=== PATIENT | female | born 1985 | race Caucasian/White ===

== ENCOUNTER 2017-03-22 16:54 | Emergency (ER) | payer MEDICAID, OTHER ==
[~2017-03-22] VITALS: Ht 154.9 cm; Wt 45.4 kg
[2017-03-22 17:05] VITALS: BP 136/89
--- NOTE | 2017-03-22 17:13 | NUR ---
31/F BIB C/O NAUSEA LOWER ABDOMINAL PAIN & HEADACHE, X1 WK . DENIES V/D; SKIN IS PINK/WARM/DRY; AAOX4 WITH EVEN AND STEADY GAIT; LUNGS CLEAR BL; HR EVEN AND REGULAR; PT DENIES ANY FEVER, CP, SOB, OR COUGH AT THIS TIME; PATIENT STATES PAIN OF 7/10 AT THIS TIME; PATIENT POSITIONED FOR COMFORT; HOB ELEVATED; BEDRAILS UP X2; BED DOWN. ER MD MADE AWARE OF PT STATUS.
--- NOTE | 2017-03-22 17:15 | NUR ---
Patient to bed 6.
[2017-03-22] MEDS ORDERED: DOXYCYCLINE 100 MG CAP PO SCH (18:25)
[2017-03-22] MEDS ORDERED: cefTRIAXone 1,000 MG in LIDOCAINE 1% ED 2.1 ML IM ONE (18:25)
[2017-03-22] MEDS ORDERED: KETOROLAC 60 MG/2 ML VIAL IM ONE (18:25)
--- NOTE | 2017-03-22 19:17 | NUR ---
Patient discharged with v/s stable. Written and verbal after care instructions given and explained. Patient alert, oriented and verbalized understanding of instructions. Ambulatory with steady gait. All questions addressed prior to discharge. ID band removed. Patient advised to follow up with PMD. Rx of IBUPROFEN & DOXYCYCLIN given. Patient educated on indication of medication including possible reaction and side effects. Opportunity to ask questions provided and answered.
[2017-03-22 19:19] VITALS: BP 124/79
[2017-03-22 19:34] LABS: APPEARANCE,URINE CLEAR (CLEAR); BILIRUBIN,URINE NEGATIVE (NEGATIVE); BLOOD, URINE NEGATIVE (NEGATIVE); COLOR,URINE YELLOW (YELLOW); LEUKOCYTE ESTERASE ,URINE NEGATIVE (NEGATIVE); NITRITE, URINE NEGATIVE (NEGATIVE); UGLUCOSE NEGATIVE (NEGATIVE)
== END 2017-03-22 19:17 | disposition home or self-care (01) ==
LOC: MED 16:54
DX: N73.9 Female pelvic inflammatory disease, unspecified (principal); R03.0 Elevated blood-pressure reading, without diagnosis of hypertension
CPT/HCPCS: 74000; 81003; 81025; 96372; 99285; J0696; J1885; J2001

== ENCOUNTER 2018-04-08 08:59 | Emergency (ER) | payer MEDICAID ==
[~2018-04-08] VITALS: Ht 157.5 cm; Wt 54.2 kg
[2018-04-08 09:06] VITALS: BP 124/71
--- NOTE | 2018-04-08 09:07 | NUR ---
PT AMBULATED TO ER BED 12
--- NOTE | 2018-04-08 09:10 | NUR ---
32Y/F BIB FAMILY WITH C/O LOWER ABDOMINAL CRAMPING WITH FOUL SMELLING DISCHARGE X 1 MONTH. NO VAGINAL BLEEDING AT THIS TIME, LMP 03/09/18. PT IS AAOX4, VSS AT THS TIME, BED DOWN, BEDRAIL UP X 1, ER MD AWARE AND NOTIFIED OF PT STATUS. HX; DENIES RX; DENIES
--- NOTE | 2018-04-08 09:26 | NUR ---
PT STATES NOW SHE IS FEELING NAUSEA AT THIS TIME, STILL NO V/D.
[2018-04-08] MEDS ORDERED: MORPHINE SULFATE 4 MG/ML SYR IVP ONE (09:30)
[2018-04-08] MEDS ORDERED: ONDANSETRON 4 MG/2 ML VIAL IVP ONE (09:30)
[2018-04-08] MEDS ORDERED: KETOROLAC 30 MG/ML VIAL IVP ONE (09:30)
[2018-04-08 10:05] LABS: BASOPHILS # (AUTO) 0.1 K/uL (0.00-0.22); BASOPHILS % (AUTO) 0.6 % (0.0-2.0); EOSINOPHILS # (AUTO) 0.1 K/uL (0-0.4); HEMOGLOBIN 11.2 g/dL (12.0-16.0); LYMPHOCYTES # (AUTO) 2.8 K/uL (2.5-16.5); LYMPHOCYTES % (AUTO) 33.9 % (20.5-51.1); MEAN CORPUSCULAR HEMOGLOBIN 22 pg (27-31); MEAN CORPUSCULAR HGB CONC 31 g/dL (33-37); MEAN CORPUSCULAR VOLUME 71.6 fL (80-94); MONOCYTES # (AUTO) 0.6 K/uL (0.8-1.0); MONOCYTES % (AUTO) 7.9 % (1.7-9.3); NEUTROPHILS # (AUTO) 4.6 K/uL (1.8-7.7); NEUTROPHILS % (AUTO) 56.6 % (42.2-75.2); PLATELET COUNT (AUTO) 269 K/uL (140-450); RED BLOOD CELL COUNT(AUTO) 5.03 MIL/uL (4.20-5.40); RED CELL DISTRIBUTION WIDTH 17.2 % (11.6-13.7); WHITE BLOOD COUNT (AUTO) 8.2 K/uL (4.8-10.8)
[2018-04-08 10:10] LABS: APPEARANCE,URINE CLEAR (CLEAR); BILIRUBIN,URINE NEGATIVE (NEGATIVE); BLOOD, URINE NEGATIVE (NEGATIVE); COLOR,URINE YELLOW (YELLOW); LEUKOCYTE ESTERASE ,URINE NEGATIVE (NEGATIVE); NITRITE, URINE NEGATIVE (NEGATIVE); UGLUCOSE NEGATIVE (NEGATIVE)
--- NOTE | 2018-04-08 10:20 | NUR ---
US AT BEDSIDE AT THIS TIME
[2018-04-08 10:29] LABS: ANION GAP 13.7 (8-16); CARBON DIOXIDE 25.8 mmol/L (21-32); CREATININE 0.8 mg/dL (0.6-1.3); POTASSIUM 3.5 mmol/L (3.5-5.1); TOTAL BILIRUBIN 0.3 mg/dL (0.0-1.0)
--- NOTE | 2018-04-08 11:00 | NUR ---
Patient appears to be resting comfortably in bed. Respirations even and unlabored.
--- NOTE | 2018-04-08 13:20 | NUR ---
VAG EXAM DONE AND COLLECTED, SENT TO LAB
[2018-04-08] MEDS ORDERED: metroNIDAZOLE 250 MG TAB PO ONE (13:25)
[2018-04-08] MEDS ORDERED: cefTRIAXone 250 MG in LIDOCAINE MPF 1% - 5 mL VIAL 0.9 ML IM ONE (13:25)
[2018-04-08] MEDS ORDERED: DOXYCYCLINE 100 MG CAP PO SCH (13:25)
[2018-04-08] MEDS ORDERED: cefTRIAXone 250 MG VIAL ONE (13:34)
[2018-04-08] MEDS ORDERED: LIDOCAINE 1% 50 ML ONE (14:09)
[2018-04-08 14:36] VITALS: BP 124/75
--- NOTE | 2018-04-08 14:37 | NUR ---
Patient discharged with v/s stable. Written and verbal after care instructions given and explained. Patient alert, oriented and verbalized understanding of instructions. Ambulatory with steady gait. All questions addressed prior to discharge. ID band removed. Patient advised to follow up with PMD. Rx of FLAGYL, NORCO, IBUPROFEN, DOXYCYCLINE given. Patient educated on indication of medication including possible reaction and side effects. Opportunity to ask questions provided and answered.
[2018-04-10 06:23] LABS: CHLAMYDIA TRACHOMATIS AMP DNA Negative (Negative)
== END 2018-04-08 14:37 | disposition home or self-care (01) ==
LOC: MED 08:59
DX: N83.201 Unspecified ovarian cyst, right side (principal); N76.0 Acute vaginitis
CPT/HCPCS: 36415; 76830; 80053; 81003; 81025; 83690; 85025; 87210; 87491; 93976; 96372; 96374; 96375; 99285; J0696; J1885; J2001; J2270; J2405; Q0092

== ENCOUNTER 2018-05-26 02:19 | Emergency (ER) | payer MEDICAID ==
[~2018-05-26] VITALS: Ht 132.1 cm; Wt 53.5 kg
[2018-05-26 02:21] VITALS: BP 154/95
--- NOTE | 2018-05-26 02:30 | NUR ---
32/F CAME IN W C/O RT PELVIC PAIN WITH NAUSEA X 3 DAYS WORSENED TODAY. ABD SOFT, ROUND, -TENDERNESS, BS ACTIVE X 4. DENIES V/D, HEMATURIA/DYSURIA, VAGINAL DISCHARGE. PMH: OVARIAN CYST
--- NOTE | 2018-05-26 02:30 | NUR ---
PT TAKEN TO BED 7
[2018-05-26 02:59] LABS: APPEARANCE,URINE CLEAR (CLEAR); BILIRUBIN,URINE NEGATIVE (NEGATIVE); BLOOD, URINE NEGATIVE (NEGATIVE); COLOR,URINE YELLOW (YELLOW); LEUKOCYTE ESTERASE ,URINE NEGATIVE (NEGATIVE); NITRITE, URINE NEGATIVE (NEGATIVE); UGLUCOSE NEGATIVE (NEGATIVE)
[2018-05-26] MEDS ORDERED: HYDROcodone/APAP 5/325 MG 1 TAB TAB PO ONE (03:10)
[2018-05-26] MEDS ORDERED: KETOROLAC 30 MG/ML VIAL IM ONE (03:10)
--- NOTE | 2018-05-26 04:50 | NUR ---
PT TAKEN TO ULTRASOUND
[2018-05-26] MEDS ORDERED: NACL 0.9% 1,000 ML IV ONE (06:03)
[2018-05-26] MEDS ORDERED: ONDANSETRON 4 MG/2 ML VIAL IVP ONE (06:05)
[2018-05-26] MEDS ORDERED: MORPHINE SULFATE 4 MG/ML SYR IVP ONE ×2 (06:05→08:40)
[2018-05-26] MEDS ORDERED: CLINDAMYCIN 900 MG in DEXTROSE 5% 100 ML IV ONE (06:35)
[2018-05-26] MEDS ORDERED: GENTAMICIN 120 MG in DEXTROSE 5% 100 ML IV ONE (06:35)
[2018-05-26] MEDS ORDERED: GENTAMICIN 80 MG/2 ML VIAL ONE ×2 (06:51→07:03)
[2018-05-26] MEDS ORDERED: CLINDAMYCIN 900 MG/6 ML VIAL IV ONE (06:52)
[2018-05-26 06:57] LABS: BASOPHILS # (AUTO) 0.1 K/uL (0.00-0.22); BASOPHILS % (AUTO) 0.7 % (0.0-2.0); EOSINOPHILS % (AUTO) 0.1 % (0.0-4.0); HEMATOCRIT 34.9 % (36-48); HEMOGLOBIN 10.8 g/dL (12.0-16.0); LYMPHOCYTES # (AUTO) 3.1 K/uL (2.5-16.5); LYMPHOCYTES % (AUTO) 18.5 % (20.5-51.1); MEAN CORPUSCULAR HEMOGLOBIN 22 pg (27-31); MEAN CORPUSCULAR HGB CONC 31 g/dL (33-37); MEAN CORPUSCULAR VOLUME 71.5 fL (80-94); MONOCYTES # (AUTO) 1.1 K/uL (0.8-1.0); MONOCYTES % (AUTO) 6.7 % (1.7-9.3); NEUTROPHILS # (AUTO) 12.4 K/uL (1.8-7.7); PLATELET COUNT (AUTO) 271 K/uL (140-450); RED BLOOD CELL COUNT(AUTO) 4.88 MIL/uL (4.20-5.40); RED CELL DISTRIBUTION WIDTH 16.8 % (11.6-13.7); WHITE BLOOD COUNT (AUTO) 16.8 K/uL (4.8-10.8)
--- NOTE | 2018-05-26 07:08 | NUR ---
GAVE REPORT TO HU STARR
--- NOTE | 2018-05-26 07:09 | NUR ---
received report from augusto schrader.
[2018-05-26 07:15] LABS: ANION GAP 16.2 (8-16); CARBON DIOXIDE 22.7 mmol/L (21-32); POTASSIUM 3.9 mmol/L (3.5-5.1)
[2018-05-26 07:16] LABS: ALBUMIN 4.4 g/dL (3.4-5.0); CREATININE 0.8 mg/dL (0.6-1.3); TOTAL BILIRUBIN 0.2 mg/dL (0.0-1.0)
--- NOTE | 2018-05-26 08:06 | NUR ---
Patient appears to be resting comfortably in bed.BP 132/73,Respirations even and unlabored.R PLOWER ABDOMINAL PAIN 11/01. WILL CONTINUE TO MONITOR.
[2018-05-26 08:36] LABS: PROTHROMBIN TIME 10.4 secs (10.8-13.4)
[2018-05-26 09:17] VITALS: BP 120/69
--- NOTE | 2018-05-26 09:17 | NUR ---
Patient discharged with v/s stable. Written and verbal after care instructions given and explained. Patient alert, oriented and verbalized understanding of instructions. Ambulatory with steady gait. All questions addressed prior to discharge. ID band removed. Patient advised to follow up with PMD. Rx of ZOFRAN, MOTRIN & NORCO given. Patient educated on indication of medication including possible reaction and side effects. Opportunity to ask questions provided and answered.
[2018-05-28 06:19] LABS: CHLAMYDIA TRACHOMATIS AMP DNA Negative (Negative)
== END 2018-05-26 09:17 | disposition home or self-care (01) ==
LOC: MED 02:19
DX: N83.201 Unspecified ovarian cyst, right side (principal)
CPT/HCPCS: 36415; 72193; 76856; 80053; 81003; 81025; 83605; 85025; 85610; 85730; 86886; 86900; 86901; 87040; 93976; 96365; 96367; 96372; 96375; 96376; 99284; J1580; J1885; J2270; J2405; J3490; J7030; Q9967; 87491

== ENCOUNTER 2020-04-07 21:44 | Emergency (ER) | payer MEDICAID ==
[~2020-04-07] VITALS: Ht 172.7 cm; Wt 54.9 kg
[2020-04-07 21:53] VITALS: BP 143/89
--- NOTE | 2020-04-07 22:10 | NUR ---
SOB X2 MONTHS, WITH INTERMITTENT NAUSEA. DENIES FEVER, COUGH, V/D, AND CONTACT WITH COVID + PTS. LUNG SOUNDS CLEAR ALL THROUGHOUT. NO RESP DISTRESS NOTED. NO USE OF ACCESSORY MUSCLES NOTED. EQUAL CHEST RISE AND FALL DENIES ANY COUGH, FEVER. C/O CHEST PAIN THAT IS NONRADAITNG. 4/10 PAIN. VSS. A&O X4. STEADY GAIT. MED HX: DENIES RX: ALBUTEROL NKA
--- NOTE | 2020-04-07 22:31 | NUR ---
XR AT BEDSIDE.
--- NOTE | 2020-04-07 22:41 | NUR ---
RUEL NERI AT BEDSIDE EVALUATING PT.
[2020-04-07] MEDS ORDERED: LORazepam 1 MG TAB PO ONE (22:50)
--- NOTE | 2020-04-07 22:54 | NUR ---
EKG BEING PERFORMED AT BEDSIDE BY YOUNG GRAVES.
--- NOTE | 2020-04-07 22:54 | NUR ---
EKG PERFORMED AT BEDSIDE. EKG READS SINUS RHYTHM @ 76
[2020-04-07] MEDS ORDERED: LORazepam 2 MG/ML VIAL IM ONE (23:00)
--- NOTE | 2020-04-07 23:00 | NUR ---
PT VOMITTED AFTER ADMINSTRATING ATIVAN, ERMD MADE AWARE.
--- NOTE | 2020-04-07 23:01 | NUR ---
Note hung in EDM - 04/07/20 at [address] [facility] PT VOMITTTED AFTER ADMINSTRATING ATIVAN, RUEL MADE AWARE.
[2020-04-07 23:30] VITALS: BP 143/89
--- NOTE | 2020-04-07 23:30 | NUR ---
Patient discharged with v/s stable. Written and verbal after care instructions given and explained. Patient verbalized understanding. Ambulatory with steady gait. All questions addressed prior to discharge. Advised to follow up with PMD.
== END 2020-04-07 23:30 | disposition home or self-care (01) ==
LOC: MED 21:44
DX: R06.00 Dyspnea, unspecified (principal)
CPT/HCPCS: 71045; 81002; 81025; 93005; 99283; Q0092